=== PATIENT | female | born 2000 | race Two or more races ===

== ENCOUNTER 2020-02-28 22:51 | Outpatient (CLI) | payer BC, OTHER ==
[~2020-02-28] VITALS: Ht 162.6 cm; Wt 72.0 kg
[2020-02-28 23:25] LABS: MICROSCOPIC INDICATED
[2020-02-28 23:30] VITALS: BP 97/51
== END 2020-02-28 23:59 | disposition home or self-care (01) ==
LOC: LDOP 22:51
PROVIDERS: ATTEND Obstetrics & Gynecology
DX: O46.92 Antepartum hemorrhage, unspecified, second trimester (principal); Z3A.27 27 weeks gestation of pregnancy
CPT/HCPCS: 59025; 81001; 87077; 87086; 87106; 87186; 99201; G0463